=== PATIENT | female | born 2000 | race African-American/Black ===

== ENCOUNTER 2019-07-31 21:24 | Emergency (ER) | payer MEDICAID ==
[~2019-07-31] VITALS: Ht 167.6 cm; Wt 95.3 kg
--- NOTE | 2019-07-31 21:43 | NUR ---
Patient walked in for c/o allergic reaction to unknown substance, noticed rash on face, denies shortness of breath and difficulty swallowing, able to speak in full sentances.
[2019-07-31] MEDS ORDERED: testosterone IM (21:49)
--- NOTE | 2019-07-31 21:51 | NUR ---
DR. ALEMAN AT BEDSIDE FOR MSE.
[2019-07-31] MEDS ORDERED: FAMOTIDINE 20 MG TABLET ONE (22:11)
[2019-07-31] MEDS ORDERED: diphenhydrAMINE 25 MG CAP PO ONE ×2 (22:11→22:15)
[2019-07-31] MEDS ORDERED: predniSONE 20 MG TABLET ONE (22:11)
[2019-07-31] MEDS ORDERED: FAMOTIDINE 20 MG TABLET PO ONE (22:15)
[2019-07-31] MEDS ORDERED: predniSONE 20 MG TABLET PO ONE (22:15)
--- NOTE | 2019-07-31 23:01 | NUR ---
Patient discharged to home in stable condition. Written and verbal after care instructions given. Patient verbalizes understanding of instructions. Stressed follow up or return to ER for worsening s/s.
[2019-07-31 23:02] VITALS: BP 143/85
== END 2019-07-31 23:02 | disposition home or self-care (01) ==
LOC: ER 21:26
DX: R21 Rash and other nonspecific skin eruption (principal)
CPT/HCPCS: 99283; J7512; Q0163; A4663

== ENCOUNTER 2019-08-06 23:51 | Emergency (ER) | payer MEDICAID ==
[~2019-08-06] VITALS: Ht 167.6 cm; Wt 111.1 kg
[~2019-08-06 23:51] MED LIST: testosterone IM
--- NOTE | 2019-08-07 00:12 | NUR ---
MSE COMPLETED, PT D/C'D HOME ACI GIVEN. PT AMBULATED W/O DIFF/TOOK ALL BELONGINGS.
[2019-08-07 00:13] VITALS: BP 148/90
== END 2019-08-07 00:14 | disposition home or self-care (01) ==
LOC: ER 23:53
DX: R49.0 Dysphonia (principal); R03.0 Elevated blood-pressure reading, without diagnosis of hypertension
CPT/HCPCS: A4663